=== PATIENT | female | born 1985 | race Two or more races ===

== ENCOUNTER 2020-04-12 20:16 | Emergency (ER) | payer OTHER ==
[~2020-04-12] VITALS: Ht 157.5 cm; Wt 54.5 kg
[2020-04-12 23:45] VITALS: BP 118/60
== END 2020-04-12 23:45 | disposition home or self-care (01) | DRG 605 ==
LOC: ED 20:16
DX: S70.02XA Contusion of left hip, initial encounter (principal); S80.02XA Contusion of left knee, initial encounter; V50.6XXA Passenger in pick-up truck or van injured in collision with pedestrian or animal in traffic accident, initial encounter